=== PATIENT | male | born 1980 | race American Indian/Alaskan Native ===

== ENCOUNTER 2017-07-15 14:25 | Emergency (ER) | payer SELFPAY ==
[2017-07-15] MEDS ORDERED: THERMAZENE 50 GRAM TP ONE (19:23)
[2017-07-15] MEDS ORDERED: BOOSTRIX IM ONE (19:23)
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
[2017-07-15 20:16] VITALS: BP 149/108
== END 2017-07-15 20:12 | disposition home or self-care (01) ==
LOC: ED 14:25
DX: T24.211A Burn of second degree of right thigh, initial encounter (principal); T22.211A Burn of second degree of right forearm, initial encounter; T21.12XA Burn of first degree of abdominal wall, initial encounter; F17.210 Nicotine dependence, cigarettes, uncomplicated; X10.0XXA Contact with hot drinks, initial encounter; Y93.89 Activity, other specified; Y92.89 Other specified places as the place of occurrence of the external cause; Y99.8 Other external cause status
CPT/HCPCS: 90471; 90715; 99282

== ENCOUNTER 2017-07-20 17:37 | Emergency (ER) | payer SELFPAY ==
[2017-07-20] MEDS ORDERED: TRIPLE ANTIBIOTIC TP ONE (18:44)
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
[2017-07-20 19:32] VITALS: BP 148/101
== END 2017-07-20 19:32 | disposition home or self-care (01) ==
LOC: ED 17:37
DX: T22.211D Burn of second degree of right forearm, subsequent encounter (principal); T24.211D Burn of second degree of right thigh, subsequent encounter; T21.12XD Burn of first degree of abdominal wall, subsequent encounter; J45.909 Unspecified asthma, uncomplicated; F17.200 Nicotine dependence, unspecified, uncomplicated; X10.0XXD Contact with hot drinks, subsequent encounter
CPT/HCPCS: 99282; A6250

== ENCOUNTER 2019-01-27 16:49 | Emergency (ER) | payer SELFPAY ==
[2019-01-27 17:55] VITALS: BP 142/97
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
== END 2019-01-27 22:01 | disposition left against medical advice (07) ==
LOC: ED 16:49
DX: R07.81 Pleurodynia (principal); Z53.21 Procedure and treatment not carried out due to patient leaving prior to being seen by health care provider